=== PATIENT | female | born 1995 | race Caucasian/White ===

== ENCOUNTER 2022-10-11 20:49 | Inpatient (IN) | payer MEDICARE ==
[2022-10-11 22:38] LABS: BUN (Urea Nitrogen) 21 mg/dL (7.0-18.7); CK (CPK) 1933 U/L (29-168); Calc. Creatinine Clearance 0 mL/min (70-130); Calcium 8.3 mg/dL (7.8-10.44); Carbon Dioxide 19 mmol/L (22-29); Chloride Greater than 145 mmol/L (98-107); Estimated GFR 39; Glucose 175 mg/dL (70-105); Lipase 36 U/L (8-78); Potassium 2.8 mmol/L (3.5-5.1); Sodium Greater than 175 mmol/L (136-145)
[2022-10-11] MEDS ORDERED: Aspirin 300 MG Suppository ONE (23:00)
[2022-10-12 01:17] LABS: Lactic Acid 4.3 mmol/L (0.5-2.2)
[2022-10-12] MEDS ORDERED: Acetaminophen 325 MG Suppository PR PRN (02:12)
[2022-10-12] MEDS ORDERED: Electrolyte Replacement Protocol 1 EACH IVPB SCH (02:12)
[2022-10-12] MEDS ORDERED: Ventilator Sedation Protocol 1 EACH FS SCH (02:15)
[2022-10-12] MEDS: Dextrose 5% in Water 1,000 ML IV SCH ×4 (02:15→18:52)
[2022-10-12] MEDS ORDERED: Fentanyl 100 MCG/2 ML VIAL ONE (02:24)
[2022-10-12] MEDS ORDERED: PROPOFOL 200 MG/20 ML VIAL ONE (02:27)
[2022-10-12] MEDS ORDERED: Lidocaine 1% PF 5 ML VIAL ONE (02:27)
[2022-10-12] MEDS ORDERED: Succinylcholine Chloride 100 MG/5 ML SYRINGE FS ONE (02:27)
[2022-10-12] MEDS ORDERED: ePHEDrine 50 MG/ML VIAL ONE (02:27)
[2022-10-12] MEDS ORDERED: PHENYLEPHRINE-NS 100 MCG/ML 10 ML SYRINGE ONE (02:27)
[2022-10-12] MEDS ORDERED: Piperacillin/Tazobactam 3.375 GM in Sodium Chloride 0.9% 100 ML IVPB SCH (02:30)
[2022-10-12] MEDS ORDERED: Propofol 1,000 MG/100 ML VIAL IV PRN (02:45)
[2022-10-12] MEDS ORDERED: Fentanyl CADD 100 ML IV SCH (02:45)
[2022-10-12] MEDS ORDERED: Propofol BOLUS 1,000 MG/100 ML VIAL IV PRN (02:45)
[2022-10-12] MEDS ORDERED: DISCONTINUE PREVIOUS NARCOTIC PAIN MEDICATIONS AND BENZODIAZEPINES FS SCH (02:45)
[2022-10-12] MEDS ORDERED: Fentanyl BOLUS 250 ML IVPB PRN (02:45)
[2022-10-12] MEDS ORDERED: Morphine 2 MG/ML VIAL SLOW IVP PRN (02:45)
[2022-10-12] MEDS ORDERED: Lorazepam 2 MG/ML VIAL SLOW IVP PRN ×2 (02:45→13:07)
[2022-10-12] MEDS ORDERED: Dextrose 50% Abboject 50 ML SYRINGE SLOW IVP PRN (03:15)
[2022-10-12 03:20] LABS: BUN (Urea Nitrogen) 23 mg/dL (7.0-18.7); Calc. Creatinine Clearance 0 mL/min (70-130); Calcium 8.3 mg/dL (7.8-10.44); Carbon Dioxide 21 mmol/L (22-29); Chloride Greater than 145 mmol/L (98-107); Estimated GFR 34; Glucose 131 mg/dL (70-105); Potassium 2.8 mmol/L (3.5-5.1); Sodium Greater than 175 mmol/L (136-145); Troponin I 5.013 ng/mL (< 0.028)
[2022-10-12 03:29] LABS: Free T4 (Free Thyroxine) 0.71 ng/dL (0.70-1.48)
[2022-10-12 03:50] LABS: Actual Bicarbonate (HCO3a) 22.6 mEq/L (22-28); Base Excess (BEa) -1.4 mEq/L (-2.0 to +3.0); CO2 Tension 35.5 mmHg (35.0-45.0); Calcium, Ionized (arterial) 1.14 mmol/L (1.12-1.30); Carboxyhemoglobin (COHb) 0.5 gm% (0.0-3.0); Hemoglobin (Hb) 12.4 g/dL (12.0-16.0); O2 Tension (PaO2), arterial 285.5 mmHg (80.0-100.0); pH, Arterial 7.42 (7.35-7.45)
[2022-10-12 03:57] LABS: Puncture Site RRA
[2022-10-12 03:58] LABS: ALV-art Gradient 26.625 mmHg (0-20)
[2022-10-12 04:35] LABS: Lactic Acid 3.8 mmol/L (0.5-2.2)
[2022-10-12 04:53] LABS: Phosphorus Less than 1.0 mg/dL (2.3-4.7)
[2022-10-12] MEDS: Potassium Chloride 20 MEQ in Premix Bag 1 BAG IVPB SCH ×4 (04:54→17:22)
[2022-10-12 05:16] VITALS: BMI 18.6
[2022-10-12 07:45] LABS: BUN (Urea Nitrogen) 24 mg/dL (7.0-18.7); Calc. Creatinine Clearance 26 mL/min (70-130); Calcium 8.2 mg/dL (7.8-10.44); Carbon Dioxide 20 mmol/L (22-29); Chloride Greater than 145 mmol/L (98-107); Estimated GFR 32; Glucose 140 mg/dL (70-105); Potassium 2.6 mmol/L (3.5-5.1); Sodium Greater than 175 mmol/L (136-145)
[2022-10-12] MEDS ORDERED: Pantoprazole 40 MG VIAL IVP SCH (09:00)
[2022-10-12] MEDS ORDERED: Dextrose 5% in Water 1,000 ML IV SCH (09:33)
[2022-10-12] MEDS ORDERED: Famotidine/PF 20 mg/2ml Vial SLOW IVP SCH (09:45)
[2022-10-12] MEDS ORDERED: Heparin 5,000 UNITS/ML VIAL SC SCH ×2 (10:15→21:00)
[2022-10-12 10:46] LABS: BUN (Urea Nitrogen) 28 mg/dL (7.0-18.7); Calc. Creatinine Clearance 24 mL/min (70-130); Calcium 7.8 mg/dL (7.8-10.44); Carbon Dioxide 14 mmol/L (22-29); Chloride Greater than 145 mmol/L (98-107); Estimated GFR 29; Glucose 218 mg/dL (70-105); Sodium Greater than 175 mmol/L (136-145)
[2022-10-12] MEDS: Piperacillin/Tazobactam 3.375 GM in Dextrose 5% in Water 100 ML IVPB SCH ×2 (13:44→22:14)
[2022-10-12 14:33] LABS: BUN (Urea Nitrogen) 30 mg/dL (7.0-18.7); Calc. Creatinine Clearance 23 mL/min (70-130); Calcium 7.1 mg/dL (7.8-10.44); Carbon Dioxide 17 mmol/L (22-29); Chloride Greater than 145 mmol/L (98-107); Estimated GFR 28; Glucose 271 mg/dL (70-105); Potassium 3.1 mmol/L (3.5-5.1); Sodium Greater than 175 mmol/L (136-145)
[2022-10-12] MEDS ORDERED: Electrolyte Replacement Protocol FS PRN (15:15)
[2022-10-12] MEDS ORDERED: HumaLOG 300 UNITS/3 ML VIAL SC PRN (15:45)
[2022-10-12 17:28] LABS: Bacteria/HPF 3+ HPF (None Seen); Bilirubin Negative (Negative); Blood, Urine 3+ (Negative); CAUTI Indications for Culture Alt mental st,lethar; Clarity Turbid (Clear); Glucose, Urine (Dipstick) 50 mg/dL (Negative); Ketone, Urine Negative (Negative); Leukocyte Negative Leu/uL (Negative); Nitrite Negative (Negative); Protein, Urine (Dipstick) 100 mg/dL (Neg-Trace); Specific Gravity, Urine 1.026 (1.002-1.036); Squamous Epithelial None Seen HPF (0-3); Urobilinogen Normal mg/dL (Less than 2); WBC/HPF None Seen HPF (0-3); pH, Urine 5.5 (5.0-9.0)
[2022-10-12 17:30] LABS: Urine Culture Reflex No No
[2022-10-12] MEDS: HumaLOG 300 UNITS/3 ML VIAL SC PRN ×2 (17:30→23:02)
[2022-10-12 18:40] LABS: Anion Gap 14 mmol/L (10-20); BUN (Urea Nitrogen) 31 mg/dL (7.0-18.7); Calc. Creatinine Clearance 22 mL/min (70-130); Calcium 6.5 mg/dL (7.8-10.44); Carbon Dioxide 18 mmol/L (22-29); Chloride 142 mmol/L (98-107); Estimated GFR 26; Glucose 390 mg/dL (70-105); Potassium 3.3 mmol/L (3.5-5.1); Sodium 171 mmol/L (136-145)
[2022-10-12] MEDS ORDERED: Magnesium 2 GM/50 ML(in water) 2 GM in Premix Bag 1 BAG IVPB SCH (21:15)
[2022-10-12 22:30] LABS: Potassium 3.4 mmol/L (3.5-5.1)
[2022-10-12 22:34] LABS: Anion Gap 12 mmol/L (10-20); BUN (Urea Nitrogen) 30 mg/dL (7.0-18.7); Calc. Creatinine Clearance 22 mL/min (70-130); Calcium 6.4 mg/dL (7.8-10.44); Carbon Dioxide 19 mmol/L (22-29); Chloride 137 mmol/L (98-107); Estimated GFR 26; Glucose 332 mg/dL (70-105); Potassium 2.9 mmol/L (3.5-5.1); Sodium 165 mmol/L (136-145)
[2022-10-13] MEDS: Potassium Chloride 20 MEQ in Premix Bag 1 BAG IVPB SCH ×4 (01:13→06:24)
[2022-10-13 04:25] LABS: Phosphorus 4.3 mg/dL (2.3-4.7)
[2022-10-13 04:35] LABS: CK (CPK) 6590 U/L (29-168)
[2022-10-13 04:46] LABS: Anion Gap 17 mmol/L (10-20); BUN (Urea Nitrogen) 32 mg/dL (7.0-18.7); Calc. Creatinine Clearance 19 mL/min (70-130); Calcium 6.5 mg/dL (7.8-10.44); Carbon Dioxide 18 mmol/L (22-29); Chloride 135 mmol/L (98-107); Estimated GFR 22; Glucose 52 mg/dL (70-105); Potassium 4.6 mmol/L (3.5-5.1); Sodium 165 mmol/L (136-145)
[2022-10-13 05:30] LABS: #Lymphocytes 1.6 thou/uL (1.20-3.40); #Monocytes 0.2 thou/uL (0.11-0.59); #Neutrophils 4.5 thou/uL (1.40-6.50); %Basophils 0.1 % (0.0-1.0); %Eosinophils 0.6 % (0.0-10.0); %Lymphocytes 24.7 % (21.0-51.0); %Monocytes 2.8 % (0.0-10.0); %Neutrophils 71.7 % (42.0-75.0); Hemoglobin 9.9 g/dL (12.0-16.0); MDiff Complete? YES; Macrocytosis SLIGHT = 6-15 cells (100X) (0-5/hpf); Mean Corpuscular HGB CONC 33.2 g/dL (32.0-36.0); Mean Corpuscular Hemoglobin 36.8 pg (27.0-31.0); Platelet Count 28 10x3/uL (130-400); Platelet Morphology Comment Appears Decreased; Reflex for Review?? YES; White Blood Cell (WBC) Count 6.3 10x3/uL (4.8-10.8)
[2022-10-13] MEDS: Piperacillin/Tazobactam 3.375 GM in Dextrose 5% in Water 100 ML IVPB SCH ×2 (06:27→18:14)
[2022-10-13 07:27] LABS: Actual Bicarbonate (HCO3a) 17.7 mEq/L (22-28); Base Excess (BEa) -6.2 mEq/L (-2.0 to +3.0); CO2 Tension 29.7 mmHg (35.0-45.0); Calcium, Ionized (arterial) 0.96 mmol/L (1.12-1.30); Carboxyhemoglobin (COHb) 0.5 gm% (0.0-3.0); Hemoglobin (Hb) 10.6 g/dL (12.0-16.0); O2 Tension (PaO2), arterial 165.5 mmHg (80.0-100.0); Potassium - ABG Lab 3.19 mmol/L (3.70-5.30); pH, Arterial 7.39 (7.35-7.45)
[2022-10-13 07:33] LABS: ALV-art Gradient 11.275 mmHg (0-20)
[2022-10-13 07:54] LABS: Anion Gap 14 mmol/L (10-20); BUN (Urea Nitrogen) 31 mg/dL (7.0-18.7); Calc. Creatinine Clearance 21 mL/min (70-130); Calcium 6.5 mg/dL (7.8-10.44); Carbon Dioxide 18 mmol/L (22-29); Chloride 134 mmol/L (98-107); Estimated GFR 21; Glucose 112 mg/dL (70-105); Potassium 3.3 mmol/L (3.5-5.1); Sodium 163 mmol/L (136-145)
[2022-10-13] MEDS ORDERED: Atropine Sulfate 1 mg/10 ml Syringe ONE (08:02)
[2022-10-13] MEDS ORDERED: Mannitol 12.5 GM/50 ML SLOW IVP SCH (08:15)
[2022-10-13] MEDS: Dextrose 5% in Water 1,000 ML IV SCH (08:21)
[2022-10-13] MEDS ORDERED: Calcium Gluconate 9.2 MEQ in Sodium Chloride 0.9% 100 ML IVPB SCH (08:21)
[2022-10-13] MEDS ORDERED: levETIRAcetam 500 MG/5 ML VIAL SLOW IVP SCH (08:30)
[2022-10-13] MEDS: Sodium Chloride 0.9% 1,000 ML IV SCH ×2 (08:49→21:33)
[2022-10-13] MEDS: Famotidine/PF 20 mg/2ml Vial SLOW IVP SCH (08:53)
[2022-10-13] MEDS: Insulin Glargine 30 UNITS/0.3 ML VIAL SC SCH (09:04)
[2022-10-13] MEDS: EPINEPHrine 4 MG in Dextrose 5% in Water 250 ML IV SCH ×2 (10:17→21:30)
[2022-10-13 11:44] LABS: Anion Gap 15 mmol/L (10-20); BUN (Urea Nitrogen) 31 mg/dL (7.0-18.7); Calc. Creatinine Clearance 19 mL/min (70-130); Calcium 7.5 mg/dL (7.8-10.44); Carbon Dioxide 17 mmol/L (22-29); Chloride 132 mmol/L (98-107); Estimated GFR 18; Glucose 136 mg/dL (70-105); Sodium 161 mmol/L (136-145)
[2022-10-13 14:19] LABS: Anion Gap 23 mmol/L (10-20); BUN (Urea Nitrogen) 32 mg/dL (7.0-18.7); Calc. Creatinine Clearance 18 mL/min (70-130); Calcium 7.4 mg/dL (7.8-10.44); Carbon Dioxide 10 mmol/L (22-29); Chloride 130 mmol/L (98-107); Estimated GFR 17; Glucose 252 mg/dL (70-105)
[2022-10-13 14:27] LABS: Potassium 2.5 mmol/L (3.5-5.1); Sodium 160 mmol/L (136-145)
[2022-10-13 15:47] LABS: Potassium - ABG Lab 2.62 mmol/L (3.70-5.30)
[2022-10-13 17:43] LABS: Phosphorus 6.4 mg/dL (2.3-4.7)
[2022-10-13 19:01] LABS: Anion Gap 24 mmol/L (10-20); BUN (Urea Nitrogen) 34 mg/dL (7.0-18.7); Calc. Creatinine Clearance 17 mL/min (70-130); Calcium 7.2 mg/dL (7.8-10.44); Chloride 129 mmol/L (98-107); Estimated GFR 16; Glucose 292 mg/dL (70-105); Potassium 3.7 mmol/L (3.5-5.1)
[2022-10-13 19:05] LABS: Carbon Dioxide 8 mmol/L (22-29); Sodium 157 mmol/L (136-145)
[2022-10-13] MEDS: levETIRAcetam 500 MG/5 ML VIAL SLOW IVP SCH (21:01)
[2022-10-13 23:24] LABS: Anion Gap 25 mmol/L (10-20); BUN (Urea Nitrogen) 35 mg/dL (7.0-18.7); Calc. Creatinine Clearance 16 mL/min (70-130); Chloride 128 mmol/L (98-107); Estimated GFR 15; Glucose 373 mg/dL (70-105); Potassium 3.3 mmol/L (3.5-5.1)
[2022-10-13 23:27] LABS: Carbon Dioxide 9 mmol/L (22-29); Sodium 159 mmol/L (136-145)
[2022-10-13] MEDS: HumaLOG 300 UNITS/3 ML VIAL SC PRN (23:40)
[2022-10-14 00:04] VITALS: BP 107/80
[2022-10-14 04:54] LABS: Anion Gap 19 mmol/L (10-20); BUN (Urea Nitrogen) 37 mg/dL (7.0-18.7); Band 8 % (5-11); Burr Cells SLIGHT = 2-5 cells (100X) (0-1/hpf); Calc. Creatinine Clearance 15 mL/min (70-130); Carbon Dioxide 12 mmol/L (22-29); Chloride 129 mmol/L (98-107); Estimated GFR 14; Glucose 246 mg/dL (70-105); Hemoglobin 10.1 g/dL (12.0-16.0); Lymphocytes 10 % (21-51); MDiff Complete? YES; Macrocytosis MODERATE=16-30 cells (100X) (0-5/hpf); Mean Corpuscular Hemoglobin 37.9 pg (27.0-31.0); Mean Platelet Volume 10.1 fL (7.4-10.4); Monocytes 3 % (0-10); Neutrophil 79 % (42-75); Ovalocytes SLIGHT = 2-5 cells (100X) (0-1/hpf); Platelet Count 18 10x3/uL (130-400); Platelet Morphology Comment Appears Decreased; Potassium 3.1 mmol/L (3.5-5.1); RBC Distribution Width 13.1 % (11.5-14.5); Red Blood Cell (RBC) Count 2.66 mill/uL (4.20-5.40); Sodium 157 mmol/L (136-145); White Blood Cell (WBC) Count 8.8 10x3/uL (4.8-10.8)
[2022-10-14] MEDS: HumaLOG 300 UNITS/3 ML VIAL SC PRN (05:26)
[2022-10-14] MEDS: Piperacillin/Tazobactam 3.375 GM in Dextrose 5% in Water 100 ML IVPB SCH (05:53)
[2022-10-14 07:11] LABS: Actual Bicarbonate (HCO3a) 16.2 mEq/L (22-28); Base Excess (BEa) -5.5 mEq/L (-2.0 to +3.0); Carboxyhemoglobin (COHb) 0.3 gm% (0.0-3.0); Hemoglobin (Hb) 9.9 g/dL (12.0-16.0); O2 Tension (PaO2), arterial 152.3 mmHg (80.0-100.0)
[2022-10-14 07:12] LABS: ALV-art Gradient 34.975 mmHg (0-20); Calcium, Ionized (arterial) 0.99 mmol/L (1.12-1.30); Puncture Site RRA
[2022-10-14] MEDS ORDERED: Sodium Chloride 0.45% 1,000 ML IV SCH (08:30)
[2022-10-14] MEDS: Insulin Glargine 30 UNITS/0.3 ML VIAL SC SCH (09:13)
[2022-10-14] MEDS: Famotidine/PF 20 mg/2ml Vial SLOW IVP SCH (09:13)
[2022-10-14] MEDS: levETIRAcetam 500 MG/5 ML VIAL SLOW IVP SCH (09:13)
[2022-10-14 10:41] LABS: ALT (SGPT) 37 U/L (8-55); AST (SGOT) 93 U/L (5-34); Albumin 2.2 g/dL (3.5-5.0); Alkaline Phosphatase 55 U/L (40-110); Bilirubin, Direct 0.3 mg/dL (0.1-0.3); Bilirubin, Total 0.8 mg/dL (0.2-1.2)
[2022-10-14 18:19] VITALS: TEMP 93.1
[2022-10-15] MEDS ORDERED: FLU VACC QS2022-23(6MOS UP)/PF 60 MCG/0.5 ML SYRINGE IM ONE (09:00)
[2022-10-19 14:04] LABS: CO2 Tension 21.3 mmHg (35.0-45.0)
== END 2022-10-14 12:40 | disposition expired | DRG 344 ==
LOC: ERS 20:49 → SDC/OP 10-12 02:27 → CCU 10-12 03:33
PROVIDERS: ADMIT Internal Medicine; ATTEND Internal Medicine
PROC: 0DSN8ZZ Reposition Sigmoid Colon, Via Natural or Artificial Opening Endoscopic (ICD-10-PCS; principal; 2022-10-12)
PROC: 0D9E80Z Drainage of Large Intestine with Drainage Device, Via Natural or Artificial Opening Endoscopic (ICD-10-PCS; 2022-10-12)
PROC: 5A1945Z Respiratory Ventilation, 24-96 Consecutive Hours (ICD-10-PCS; 2022-10-12)
PROC: 4A133R1 Monitoring of Arterial Saturation, Peripheral, Percutaneous Approach (ICD-10-PCS; 2022-10-12)
DX: K56.2 Volvulus (principal); G93.5 Compression of brain; G93.6 Cerebral edema; J96.00 Acute respiratory failure, unspecified whether with hypoxia or hypercapnia; E87.20 Acidosis, unspecified; M62.82 Rhabdomyolysis; N17.9 Acute kidney failure, unspecified; E87.0 Hyperosmolality and hypernatremia; N18.4 Chronic kidney disease, stage 4 (severe); G93.49 Other encephalopathy; I24.8 Other forms of acute ischemic heart disease; Z66 Do not resuscitate; Z51.5 Encounter for palliative care; E03.9 Hypothyroidism, unspecified; R56.9 Unspecified convulsions; E86.0 Dehydration; E87.6 Hypokalemia; R73.9 Hyperglycemia, unspecified; R00.1 Bradycardia, unspecified; R94.31 Abnormal electrocardiogram [ECG] [EKG]; E83.39 Other disorders of phosphorus metabolism; Q90.9 Down syndrome, unspecified; Z79.899 Other long term (current) drug therapy; Z78.1 Physical restraint status
CPT/HCPCS: 36415; 36416; 36600; 51702; 70450; 71045; 74018; 74176; 78610; 80048; 80076; 81001; 82550; 82805; 83605; 83690; 83735; 83935; 84100; 84439; 84481; 84484; 85025; 85060; 87040; 93005; 93010; 93306; 94002; 94003; 95712; 95816; 95819; 95957; A9521; J0171; J0461; J0610; J1642; J1644; J1815; J1953; J2060; J2150; J2543; J2704; J3010; J3475; J3480; J3490; J7050; J7070; S0028

== ENCOUNTER 2022-10-14 12:39 | Inpatient (IN) | payer OTHER ==
[2022-10-14 21:29] LABS: Actual Bicarbonate (HCO3a) 15.6 mEq/L (22-28); Base Excess (BEa) -9.1 mEq/L (-2.0 to +3.0); CO2 Tension 29.9 mmHg (35.0-45.0); Calcium, Ionized (arterial) 1.01 mmol/L (1.12-1.30); Hemoglobin (Hb) 10.6 g/dL (12.0-16.0); O2 Tension (PaO2), arterial 121.5 mmHg (80.0-100.0); Potassium - ABG Lab 3.06 mmol/L (3.70-5.30); pH, Arterial 7.34 (7.35-7.45)
[2022-10-14 21:34] LABS: Puncture Site LINE
[2022-10-14 21:35] LABS: ALV-art Gradient 55.025 mmHg (0-20)
[2022-10-14 21:40] LABS: Hemoglobin 9.9 g/dL (12.0-16.0); Mean Corpuscular HGB CONC 32.9 g/dL (32.0-36.0); Mean Corpuscular Hemoglobin 36.6 pg (27.0-31.0); Mean Platelet Volume 12.5 fL (7.4-10.4); Platelet Count 8 10x3/uL (130-400); RBC Distribution Width 13.2 % (11.5-14.5); Red Blood Cell (RBC) Count 2.72 mill/uL (4.20-5.40); White Blood Cell (WBC) Count 9.9 10x3/uL (4.8-10.8)
[2022-10-14 21:45] LABS: Lactic Acid 1.1 mmol/L (0.5-2.2)
[2022-10-14] MEDS ORDERED: Refresh Lacri-lube Opth Oint 7 GM TUBE FS SCH (21:45)
[2022-10-14] MEDS ORDERED: Hydrocortisone Sod Succ/PF 500 mg/4 ml Vial SLOW IVP SCH (21:45)
[2022-10-14 21:51] LABS: ALT (SGPT) 30 U/L (8-55); AST (SGOT) 62 U/L (5-34); Albumin 2.1 g/dL (3.5-5.0); Alkaline Phosphatase 55 U/L (40-110); Anion Gap 13 mmol/L (10-20); BUN (Urea Nitrogen) 35 mg/dL (7.0-18.7); Bilirubin, Direct 0.3 mg/dL (0.1-0.3); Bilirubin, Total 0.7 mg/dL (0.2-1.2); CK (CPK) 1999 U/L (29-168); Calc. Creatinine Clearance 0 mL/min (70-130); Carbon Dioxide 14 mmol/L (22-29); Chloride 127 mmol/L (98-107); Estimated GFR 12; Gamma GT (GGT) 10 U/L (9-36); Globulin 2.5 g/dL (2.4-3.5); Glucose 96 mg/dL (70-105); Magnesium 1.8 mg/dL (1.6-2.6); Phosphorus 6.1 mg/dL (2.3-4.7); Potassium 3.1 mmol/L (3.5-5.1); Protein, Total 4.6 g/dL (6.0-8.3)
[2022-10-14 21:51] LABS: Bilirubin Negative (Negative); Blood, Urine 3+ (Negative); Clarity Turbid (Clear); Glucose, Urine (Dipstick) Normal (Negative); Ketone, Urine Negative (Negative); Leukocyte Negative Leu/uL (Negative); Nitrite Negative (Negative); Protein, Urine (Dipstick) 70 mg/dL (Neg-Trace); RBC/HPF 0-3 HPF (0-3); Renal Epithelial 0-3 HPF (None Seen); Specific Gravity, Urine 1.008 (1.002-1.036); Squamous Epithelial 0-3 HPF (0-3); Transitional Epithelial 0-3 HPF (None Seen); Urobilinogen Normal mg/dL (Less than 2); pH, Urine 6.5 (5.0-9.0)
[2022-10-14 21:52] LABS: Bacteria/HPF 1+ HPF (None Seen)
[2022-10-14 21:54] LABS: Calcium 6.5 mg/dL (7.8-10.44); Sodium 151 mmol/L (136-145)
[2022-10-14 21:55] LABS: CKMB 10.6 ng/mL (0-6.6)
[2022-10-14 21:57] LABS: INR-International Normal Ratio 1.4; PTT 38.9 sec (22.9-36.1); Prothrombin Time 18.2 sec (12.0-14.7)
[2022-10-14 21:58] LABS: Band 17 % (5-11); Critical Call Chem Troponin I RESULT DECREASING; Hypochromia SLIGHT = 6-15 cells (100X) (0-5/hpf); Lymphocytes 21 % (21-51); MDiff Complete? YES; Macrocytosis SLIGHT = 6-15 cells (100X) (0-5/hpf); Monocytes 2 % (0-10); Neutrophil 58 % (42-75); Platelet Morphology Comment Appears Decreased; Reactive Lymphocytes 2 % (0-10); Troponin I 1.044 ng/mL (< 0.028)
[2022-10-14] MEDS ORDERED: MINERAL OIL/WHITE PETROLATUM 3.5 GM TUBE FS SCH (22:00)
[2022-10-14] MEDS: Phenylephrine 40 MG in Sodium Chloride 0.9% 250 ML 250 ML IVPB SCH (22:13)
[2022-10-14] MEDS: Piperacillin/Tazobactam 2.25 GM in Sodium Chloride 0.9% 100 ML IVPB SCH (22:13)
[2022-10-14] MEDS: Sodium Chloride 0.45% 1,000 ML IV SCH (22:14)
[2022-10-14] MEDS: Hydrocortisone Sod Succ/PF 100 mg/2 ml Vial IVP SCH (22:14)
[2022-10-15] MEDS: Albuterol 2.5 MG/0.5 ML NEB NEB SCH ×4 (00:08→11:14)
[2022-10-15] MEDS ORDERED: Albumin 25% 25 GM/100 ML BOT IVPB SCH ×2 (00:15→08:30)
[2022-10-15] MEDS: Phytonadione 10 MG/ML AMP SLOW IVP SCH ×2 (00:26→05:33)
[2022-10-15] MEDS: Phenylephrine 40 MG in Sodium Chloride 0.9% 250 ML 250 ML IVPB SCH ×4 (02:16→11:25)
[2022-10-15] MEDS ORDERED: Furosemide 20 MG/2 ML VIAL SLOW IVP SCH ×2 (03:15→06:00)
[2022-10-15] MEDS: Sodium Chloride 0.45% 1,000 ML IV SCH (04:35)
[2022-10-15] MEDS: Piperacillin/Tazobactam 2.25 GM in Sodium Chloride 0.9% 100 ML IVPB SCH (05:33)
[2022-10-15] MEDS: Hydrocortisone Sod Succ/PF 100 mg/2 ml Vial IVP SCH (05:33)
[2022-10-15] MEDS ORDERED: ALBUMIN 5% 25 GM/500 ML BAG IVPB SCH (06:00)
[2022-10-15] MEDS ORDERED: Sodium Bicarb 50 MEQ/50 ML VIAL IVP SCH (06:00)
[2022-10-15 06:40] LABS: Bilirubin Negative (Negative); Blood, Urine 2+ (Negative); Clarity Turbid (Clear); Glucose, Urine (Dipstick) Normal (Negative); Ketone, Urine Negative (Negative); Leukocyte Negative Leu/uL (Negative); Nitrite Negative (Negative); Protein, Urine (Dipstick) 50 mg/dL (Neg-Trace); Specific Gravity, Urine 1.008 (1.002-1.036); Urobilinogen Normal mg/dL (Less than 2)
[2022-10-15 06:43] LABS: Hemoglobin 8.1 g/dL (12.0-16.0); Mean Corpuscular HGB CONC 33.8 g/dL (32.0-36.0); Mean Corpuscular Hemoglobin 37.6 pg (27.0-31.0); Mean Platelet Volume 12.8 fL (7.4-10.4); Platelet Count 4 10x3/uL (130-400); RBC Distribution Width 13.2 % (11.5-14.5); Red Blood Cell (RBC) Count 2.15 mill/uL (4.20-5.40); White Blood Cell (WBC) Count 6.8 10x3/uL (4.8-10.8)
[2022-10-15 06:49] LABS: INR-International Normal Ratio 1.9; Prothrombin Time 22.1 sec (12.0-14.7)
[2022-10-15 06:50] LABS: PTT 46.1 sec (22.9-36.1)
[2022-10-15 06:57] LABS: Lactic Acid 1.4 mmol/L (0.5-2.2)
[2022-10-15 07:03] LABS: ALT (SGPT) 24 U/L (8-55); AST (SGOT) 47 U/L (5-34); Albumin 3.6 g/dL (3.5-5.0); Alkaline Phosphatase 122 U/L (40-110); Anion Gap 19 mmol/L (10-20); BUN (Urea Nitrogen) 37 mg/dL (7.0-18.7); Bilirubin, Direct 0.5 mg/dL (0.1-0.3); CK (CPK) 1092 U/L (29-168); Calc. Creatinine Clearance 0 mL/min (70-130); Calcium 6.7 mg/dL (7.8-10.44); Carbon Dioxide 13 mmol/L (22-29); Chloride 124 mmol/L (98-107); Estimated GFR 12; Globulin 1.8 g/dL (2.4-3.5); Glucose 106 mg/dL (70-105); Magnesium 1.6 mg/dL (1.6-2.6); Phosphorus 7.1 mg/dL (2.3-4.7); Potassium 4.7 mmol/L (3.5-5.1); Protein, Total 5.4 g/dL (6.0-8.3); Sodium 151 mmol/L (136-145)
[2022-10-15 07:09] LABS: Critical Call Chem Troponin I RESULT DECREASING
[2022-10-15 07:10] LABS: Base Excess (BEa) -13.6 mEq/L (-2.0 to +3.0); Calcium, Ionized (arterial) 0.96 mmol/L (1.12-1.30); Carboxyhemoglobin (COHb) 0.3 gm% (0.0-3.0); Hemoglobin (Hb) 8.9 g/dL (12.0-16.0); O2 Tension (PaO2), arterial 456.2 mmHg (80.0-100.0); Potassium - ABG Lab 4.83 mmol/L (3.70-5.30)
[2022-10-15 07:11] LABS: Puncture Site Arterial Line
[2022-10-15] MEDS ORDERED: Sodium Bicarb 50 MEQ/50 ML VIAL ONE (07:25)
[2022-10-15 08:27] LABS: CKMB 8.2 ng/mL (0-6.6)
[2022-10-15 08:56] LABS: Band 9 % (5-11); Eosinophils 1 % (0-10); Lymphocytes 9 % (21-51); MDiff Complete? YES; Monocytes 3 % (0-10); Neutrophil 76 % (42-75); Platelet Morphology Comment Appears Decreased; Polychromasia SLIGHT = 2-3 cells (100X) (0-2/hpf); Promyelocytes 1 % (0-0); Reactive Lymphocytes 1 % (0-10)
[2022-10-15] MEDS ORDERED: Bumetanide 1 MG/4 ML VIAL IVP SCH (09:00)
[2022-10-15 11:10] VITALS: TEMP 97.5
[2022-10-15 11:14] LABS: Hemoglobin A1c 4.7 % (4.0-6.0)
[2022-10-15 11:24] VITALS: BP 103/65
[2022-10-15 12:54] LABS: Base Excess (BEa) -16.4 mEq/L (-2.0 to +3.0); CO2 Tension 35.6 mmHg (35.0-45.0); Calcium, Ionized (arterial) 0.93 mmol/L (1.12-1.30); Carboxyhemoglobin (COHb) 0.3 gm% (0.0-3.0); Hemoglobin (Hb) 9.2 g/dL (12.0-16.0); O2 Tension (PaO2), arterial 362.5 mmHg (80.0-100.0); Potassium - ABG Lab 5.06 mmol/L (3.70-5.30)
[2022-10-19 14:43] LABS: Actual Bicarbonate (HCO3a) 13.6 mEq/L (22-28); pH, Arterial 7.18 (7.35-7.45)
[2022-10-19 14:45] LABS: Actual Bicarbonate (HCO3a) 11.6 mEq/L (22-28); pH, Arterial 7.13 (7.35-7.45)
== END 2022-10-15 13:38 | disposition critical access hospital (66) | DRG 951 ==
LOC: CCU 12:40 → SDC 12:40
PROVIDERS: ADMIT Internal Medicine; ATTEND Internal Medicine
DX: Z52.9 Donor of unspecified organ or tissue (principal)
CPT/HCPCS: 71045; 80053; 81001; 81003; 82248; 82550; 82553; 82805; 82977; 83036; 83605; 83735; 84100; 84484; 85025; 85384; 85610; 85730; 87205; 94003; 94640; J1720; J1940; J2370; J2543; J3430; J3490; J7050; J7611; P9045; P9047